=== PATIENT | male | born 1995 | race Caucasian/White ===

== ENCOUNTER 2016-10-04 20:05 | Emergency (ER) | payer OTHER ==
[~2016-10-04] VITALS: Ht 182.9 cm; Wt 74.2 kg
[2016-10-04 20:17] VITALS: TEMP 37.1; Ht 182.9 cm; Wt 74.2 kg
--- NOTE | 2016-10-04 22:02 | EMERGENCY ROOM VISIT NOTE ---
History First contact with patient: 20:29 Chief Complaint: FINGER PAIN Stated Complaint: BONE CHIPPED IN LF MIDDLE FINGER,GOT PINCHED History of Present Illness The patient is a 20 year old male who presents to the Emergency Room via private vehicle accompanied by father with complaints of "bone chips and left middle finger, got pinched". The patient states that earlier today he was attaching account to a fence with a chain when his left middle finger got caught between the chain and the fence pole. The patient was seen at [facility] where radiographs were obtained of which he furnishes via CD. Patient denies any numbness or tingling in the finger. Patient rates the pain as a 5-6/ 10. He declines pain medication. His tetanus is not up-to-date at all, but declines this as well. Review of Systems A complete 6-point Review of Systems was discussed with the patient, with pertinent positives and negatives listed in the History of Present Illness. All remaining Review of Systems questions can be considered negative unless otherwise specified. Past Medical/Surgical History Unremarkable Family History Unremarkable Social History Smoking Status: Never Smoker Social History: Patient lives at home with family. Current/Historical Medications No Active Prescriptions or Reported Meds Allergies Coded Allergies: No Known Allergies (Unverified , 10/04/16) Physical Exam Vital Signs Date Time Temp Pulse Resp B/P Pulse Ox O2 Delivery O2 Flow Rate FiO2 10/04/16 22:16 65 18 129/68 96 Room Air 10/04/16 20:17 37.1 59 16 142/60 100 Room Air Physical Exam VITAL SIGNS - Vital signs and nursing notes were reviewed. Patient is afebrile , with a blood pressure of 142/60, he is not tachycardic and is saturating well on room air 100%. GENERAL -20-year-old male appearing his stated age who is in no acute distress. Communicates well with provider and answers questions appropriately. SKIN - Without rashes. There are 2 small breaks in the integument on the lateral aspects at the base of the left third digit. No evidence of open fracture. No bone visible. Fingernail is intact. HEAD - NC/AT. EXTREMITIES - No clubbing or peripheral cyanosis. No pretibial edema present. Patient able to exhibit full range of motion actively of the left hand and digits. Patient able to flex he left third digit and extend. There is evidence of edema at the left third DIP. This is the location of the supposedly chip fracture. The fingernail is intact without evidence of nail bed involvement. When pressing down on the left third digit fingernail there is slight movement at the base near the nailbed matrix however there does not appear to be extension into the fracture. There are 2 small lacerations in a linear fashion that are subcentimeter and superficial at the base on either side. These are noncommunicating with the fracture. Again there is no evidence of open fracture. There is full sensation. No evidence of vascular compromise. NEUROLOGIC - Sensory intact to light touch throughout. Medical Decision & Procedures ER Provider Diagnostic Interpretation: As interpreted by myself, Radiograph as furnished by patient on CD revealed a mallet finger deformity of the DIP of the left third digit. Medical Decision Patient was seen and evaluated as above. He declined pain medication or tetanus. I personally reviewed the radiographs that he furnished which revealed a mouth finger deformity of the third DIP. The wound did not appear to be open although there were 2 superficial lacerations. The nail bed did appear to be unharmed and the nail was intact. This is not believed to be an open fracture. The patient was splinted in full extension after thorough irrigation of the 2 smaller lacerations which were dressed prior to splinting. Full extension splint was applied. Andrea wrap was then used with good fit. Patient was instructed to follow-up with a hand specialist regarding this. He was educated upon worrisome symptoms in which to return. He had questions answered prior to discharge and was discharged home in good condition. In the evaluation and treatment of this patient the following differential diagnoses were entertained: Mallet finger deformity, flexor tendon/extensor tendon involvement, contusion, among others. Impression Primary Impression: Closed mallet fracture of distal phalanx of finger of left hand Departure Information Dispostion Home / Self-Care Condition GOOD Prescriptions No Active Prescriptions or Reported Meds Referrals No Doctor, Assigned (PCP) Kevin Johnson MD Patient Instructions [facility] Additional Instructions You have a broken finger tip of your left middle finger. Please wear the splint for comfort until you see the finger specialist. Please call Dr. Johnson (number listed above) to schedule an appointment by calling him first thing tomorrow morning and requesting an appointment. Proper wound care is essential for adequate wound healing and infection prevention. You can shower and clean the wound with soap and water. Do not scour over the wound, pat dry with a towel. Do not submerse the wound (i.e. bathe or dish wash) until the skin is cleansed. You can use an antibiotic ointment with a dressing over the wound for the next 3-4 days. After this time you may leave the wound dry and open to the air. If crust develops over the wound you can use a Q-tip to apply a 1:1 peroxide:water solution to clean the wound. Look for signs of infection of the wound including: increased pain, swelling, foul discharge, streaking, or increased temperature. If any of these are noticed you should return to the Emergency Department for further assessment and treatment. As with any laceration you may have received nerve damage to the surrounding tissues. This damage may or may not be permanent. You should keep the area covered with sunscreen for the first 6 months to 1 year when at risk for exposure to help minimize scarring. You can also use scar reducing creams or Vitamin E oil to help minimize scarring. For pain control, you can use the following [id number] medicines (if >12 yo): - Regular strength (325mg/tab) Tylenol (acetaminophen) 2 tabs every 4-6 hours as needed. Do not exceed 12 tablets in a 24 hour period. Avoid taking more than 4 grams (4000 mg) of Tylenol per day. This includes any other sources of acetaminophen you may take on a regular basis. - Regular strength (200 mg/tab) Advil (ibuprofen) 1-2 tabs every 4-6 hours as needed. Do not exceed a dose of 3200 mg per day. Return to the emergency department if your symptoms worsen despite treatment course outlined above.
[2016-10-04 22:16] VITALS: BP 129/68; PULSE 65; O2SAT 96
== END 2016-10-04 22:25 | disposition home or self-care (01) ==
LOC: C.EDB 20:06 → C.EDD 22:25
DX: S62.663A Nondisplaced fracture of distal phalanx of left middle finger, initial encounter for closed fracture (principal); W23.1XXA Caught, crushed, jammed, or pinched between stationary objects, initial encounter